=== PATIENT | female | born 1995 | race Caucasian/White ===

== ENCOUNTER 2023-08-15 01:04 | Emergency (ER) | payer SELFPAY ==
[~2023-08-15] VITALS: Ht 160 cm; Wt 106.9 kg
[2023-08-15 01:25] VITALS: O2SAT 98
[2023-08-15] MEDS: DIPHENHYDRAMINE 50MG/ML VIAL IV ONE (03:47)
[2023-08-15] MEDS: PROCHLORPERAZINE 10MG/2ML VIAL IV PRN (03:48)
[2023-08-15] MEDS: PROCHLORPERAZINE 10MG/2ML VIAL IV ONE (03:48)
[2023-08-15] MEDS: SODIUM CHLORIDE 0.9% 1,000 ML IV ONE (03:48)
[2023-08-15] MEDS ORDERED: IBUP-2030 MT (05:19)
[2023-08-15] MEDS: MORPHINE SULFATE 2 MG/ML CPJ (NOT FOR IM USE) IV ONE (05:51)
[2023-08-15] MEDS: KETOROLAC 30MG/ML VIAL IV ONE (05:51)
[2023-08-15] MEDS: ACETAMINOPHEN 325MG TABLET PO ONE (05:51)
[2023-08-15 06:00] VITALS: BP 118/67; PULSE 97; RESP 22; TEMP 98
== END 2023-08-15 06:47 | disposition home or self-care (01) ==
LOC: ER 01:04
DX: R51.9 Headache, unspecified (principal); R11.0 Nausea
CPT/HCPCS: 99285; 96374; 96375; 70450; 96361; J1200; J1885; J0780; J2270; J7030